=== PATIENT | female | born 1955 | race Caucasian/White ===

== ENCOUNTER 2016-11-19 05:24 | Emergency (ER) | payer OTHER, MEDICAID ==
[~2016-11-19] VITALS: Ht 165.1 cm; Wt 64.0 kg
[2016-11-19] MEDS ORDERED: IV SET PRIMARY PUMP SET 1 EA INFUS.SET MC ONE (05:40)
[2016-11-19] MEDS ORDERED: IV NS 0.9% 1,000 ML ONE (05:40)
[2016-11-19] MEDS ORDERED: PANTOPRAZOLE 40 MG VIAL ONE (05:40)
[2016-11-19] MEDS ORDERED: IV NS 0.9% 100 ML IV ONE (05:40)
[2016-11-19] MEDS ORDERED: ONDANSETRON HCL/PF 4 MG/2 ML VIAL ONE (05:40)
[2016-11-19] MEDS ORDERED: SECONDARY IV SET 1 EA INFUS.SET MC ONE (05:40)
--- NOTE | 2016-11-19 05:51 | NUR ---
BIB RA FROM HOME FOR ETOH, PATIENT IS VERBALLY RESPONSIVE WITH SLOW SPEECH AND FORGETFULNESS, PATIENT IS PLACED ON MONITOR, NO SOB, NO CHEST PAIN, MD AT BEDSIDE UPON ARRIVAL, WILL CONTINUE TO MONITOR CLOSELY.
[2016-11-19] MEDS ORDERED: IV NS 0.9% 1,000 ML BAG IV ONE (06:00)
[2016-11-19] MEDS ORDERED: PANTOPRAZOLE 40 MG VIAL IV ONE (06:00)
[2016-11-19] MEDS ORDERED: ONDANSETRON HCL/PF 4 MG/2 ML VIAL IVP ONE (06:00)
[2016-11-19] MEDS ORDERED: HYDROMORPHONE 1 MG/1 ML DISP.SYRIN ONE ×2 (06:53→08:48)
[2016-11-19] MEDS ORDERED: HYDROMORPHONE 1 MG/1 ML DISP.SYRIN IV ONE ×2 (07:00→09:00)
--- NOTE | 2016-11-19 07:01 | NUR ---
Clinton ortega in [facility] - 11/19/16 at 0704 by MARLYS MATI TERRY PLACED BY NURSING ASSISTANT PROFESSOR OF NURSING TARAH
--- NOTE | 2016-11-19 07:04 | NUR ---
MEDICATED PT ORDERED
--- NOTE | 2016-11-19 08:00 | NUR ---
PT STILL REFUSES BLOOD DRAW. MADE AWARE.
--- NOTE | 2016-11-19 08:10 | NUR ---
DR. ZUÑIGA AT BS TO TALK TO PT.
--- NOTE | 2016-11-19 08:19 | NUR ---
MIXING MACHINE TENDER CORK ROD AT FOR BLOOD DRAW.
[2016-11-19 08:41] LABS: BASOPHILS # (AUTO) 0.1 /CMM (0.0-0.2); BASOPHILS % (AUTO) 1.5 % (0.0-2.0); EOSINOPHILS # (AUTO) 0.5 /CMM (0.0-0.7); EOSINOPHILS % (AUTO) 5.8 % (0.0-6.0); HEMATOCRIT 33 % (33-45); HEMOGLOBIN 10.6 g/dL (11.5-14.8); LYMPHOCYTES # (AUTO) 2.8 /CMM (0.8-4.8); LYMPHOCYTES % (AUTO) 34.2 % (20.0-44.0); MEAN CORPUSCULAR HEMOGLOBIN 27 PG (26.0-33.0); MEAN CORPUSCULAR HGB CONC 33 g/dl (31.0-36.0); MEAN CORPUSCULAR VOLUME 82 fL (82-100); MONOCYTES # (AUTO) 0.4 /CMM (0.1-1.30); MONOCYTES % (AUTO) 4.5 % (2.0-12.0); NEUTROPHILS # (AUTO) 4.4 /CMM (1.8-8.9); PLATELET COUNT (AUTO) 264 /CMM (150-450); RDW COEFFICIENT OF VARIATION 18.6 (11.5-15.0); RED BLOOD CELL COUNT(AUTO) 4.02 MIL/uL (4.0-5.2); WHITE BLOOD COUNT (AUTO) 8.2 K/uL (4.3-11.0)
--- NOTE | 2016-11-19 08:45 | NUR ---
[facility] CALLED FOR VS UPDATE.
[2016-11-19 08:51] LABS: CALCIUM, SERUM 8.4 mg/dL (8.5-10.1); CARBON DIOXIDE 22 mmol/L (21-32); CHLORIDE 101 mmol/L (98-107); CREATININE 0.6 mg/dL (0.6-1.3); GLUCOSE 79 mg/dL (74-106); POTASSIUM 4.2 mmol/L (3.5-5.1); SODIUM SERUM 134 mmol/L (136-145); UREA NITROGEN, BLOOD 9 mg/dL (7-18)
[2016-11-19 08:57] LABS: ALANINE AMINOTRANSFERASE 35 U/L (12-78); ALBUMIN 3.5 g/dL (3.4-5.0); ALKALINE PHOSPHATASE 122 U/L (46-116); ASPARTATE AMINOTRANSFERASE 48 U/L (15-37); BILIRUBIN,DIRECT 0.1 mg/dL (0.0-0.2); BILIRUBIN,TOTAL 0.2 mg/dL (0.2-1.0); SALICYLATE 5.5 mg/dL (2.8-20.0); TOTAL PROTEIN, SERUM 7.5 g/dL (6.4-8.2)
[2016-11-19 08:58] LABS: ACETAMINOPHEN 0 ug/ml (10-30); ALCOHOL, BLOOD < 3 mg/dL (0-0)
[2016-11-19 08:59] LABS: TROPONIN I < 0.017 ng/mL (0.00-0.056)
[2016-11-19 09:02] LABS: APPEARANCE,URINE CLEAR (CLEAR); BILIRUBIN,URINE NEGATIVE (NEGATIVE); BLOOD, URINE NEGATIVE Ery/uL (NEGATIVE); COLOR,URINE YELLOW (YELLOW); KETONES,URINE NEGATIVE (NEGATIVE); LEUKOCYTE ESTERASE ,URINE NEGATIVE (NEGATIVE); NITRITE, URINE NEGATIVE (NEGATIVE); PROTEIN,URINE NEGATIVE (NEGATIVE); UGLUCOSE NEGATIVE (NEGATIVE); UROBILINOGEN,URINE 0.2 EU/dL (0.2)
[2016-11-19 09:05] LABS: MAGNESIUM 1.9 mg/dL (1.8-2.4)
[2016-11-19 09:29] VITALS: BP 126/81
--- NOTE | 2016-11-19 09:29 | NUR ---
Patient discharged to home in stable condition. Written and verbal after care instructions given. Patient verbalizes understanding of instruction.
== END 2016-11-19 09:31 | disposition home or self-care (01) ==
LOC: ER 05:26
DX: R10.13 Epigastric pain (principal); F10.129 Alcohol abuse with intoxication, unspecified; R94.6 Abnormal results of thyroid function studies
CPT/HCPCS: 36415; 80048-TC; 80076-TC; 81000-TC; 82140-TC; 83690-TC; 83735-TC; 84443-TC; 84484-TC; 85025-TC; A4606; C9113; G0480; J1170; J2405; J7030; Z7610

== ENCOUNTER 2016-11-23 13:37 | Emergency (ER) | payer OTHER, MEDICAID ==
[~2016-11-23] VITALS: Ht 170.2 cm; Wt 56.7 kg
--- NOTE | 2016-11-23 13:37 | NUR ---
BIB RA 39 FROM HOME,ROOMMATE CALLED 911 FOR HER FOR "BINGING ON ALCOHOL" C/O EPIGASTRIC PAIN. PT USUALLY DOESNT DRINK ALCOHOL . PLACED ON MONITOR. AWAITING MD ORDER.
--- NOTE | 2016-11-23 15:36 | NUR ---
SCALLOP BINDER AT BEDSIDE
[2016-11-23] MEDS ORDERED: HYDROCODONE/APAP 5/325MG 1 EACH TABLET ONE (16:55)
[2016-11-23] MEDS ORDERED: HYDROCODONE/APAP 5/325MG 1 EACH TABLET PO ONE (17:00)
[2016-11-23 17:05] VITALS: BP 122/76
--- NOTE | 2016-11-23 17:06 | NUR ---
Patient discharged to home in stable condition. Written and verbal after care instructions given. Patient verbalizes understanding of instruction.
== END 2016-11-23 17:29 | disposition home or self-care (01) ==
LOC: ER 13:39
DX: F10.129 Alcohol abuse with intoxication, unspecified (principal); S62.501A Fracture of unspecified phalanx of right thumb, initial encounter for closed fracture; C14.0 Malignant neoplasm of pharynx, unspecified; W01.0XXA Fall on same level from slipping, tripping and stumbling without subsequent striking against object, initial encounter; Y93.89 Activity, other specified; Y92.89 Other specified places as the place of occurrence of the external cause; Y99.8 Other external cause status
CPT/HCPCS: 29125; 73100; 73140; 99284; A4606; Z7610

== ENCOUNTER 2020-12-24 05:32 | Inpatient (IN) | payer MEDICAID, OTHER ==
[~2020-12-24] VITALS: Ht 165.1 cm; Wt 49.9 kg
--- NOTE | 2020-12-24 05:50 | NUR ---
PATIENT [id number], FROM STREET, C/O CHEST PAIN AFTER DRINKING ETOH AND GETTING KICKED OUT OF SOBER LIVING. PATIENT IS A/O, RR EVEN AND UNLABORED, NO SIGNS OF SOB NOTED. PATIENT CONNECTED TO HOME HEALTH CAREGIVER AND POX.
[2020-12-24 06:25] LABS: BASOPHILS # (AUTO) 0.1 K/uL (0.0-0.2); EOSINOPHILS % (AUTO) 2.2 % (0.0-6.0); HEMATOCRIT 37 % (33-45); HEMOGLOBIN 12.4 g/dL (11.5-14.8); LYMPHOCYTES # (AUTO) 1.7 K/uL (0.8-4.8); LYMPHOCYTES % (AUTO) 32.6 % (20.0-44.0); MEAN CORPUSCULAR HGB CONC 33 g/dl (31.0-36.0); MEAN CORPUSCULAR VOLUME 97 fL (82-100); MONOCYTES # (AUTO) 0.5 K/uL (0.1-1.30); MONOCYTES % (AUTO) 9.6 % (2.0-12.0); NEUTROPHILS # (AUTO) 2.9 K/uL (1.8-8.9); NEUTROPHILS % (AUTO) 54.6 % (43.0-81.0); PLATELET COUNT (AUTO) 262 K/uL (150-450); RED BLOOD CELL COUNT(AUTO) 3.83 MIL/uL (4.0-5.2); WHITE BLOOD COUNT (AUTO) 5.4 K/uL (4.3-11.0)
[2020-12-24 06:40] LABS: POTASSIUM 3.3 mmol/L (3.5-5.1)
[2020-12-24 06:46] LABS: ALBUMIN 3.8 g/dL (3.4-5.0); BILIRUBIN,DIRECT 0.2 mg/dL (0.0-0.2); BILIRUBIN,TOTAL 0.4 mg/dL (0.2-1.0); TOTAL PROTEIN, SERUM 7.5 g/dL (6.4-8.2)
[2020-12-24 06:53] LABS: CALCIUM, SERUM 8.9 mg/dL (8.5-10.1)
[2020-12-24 07:15] LABS: CREATININE 0.7 mg/dL (0.6-1.3)
--- NOTE | 2020-12-24 07:19 | NUR ---
nghia Ross speaking with md estrada
[2020-12-24] MEDS ORDERED: LORAZEPAM 1 MG TABLET PO ONE (07:30)
[2020-12-24] MEDS ORDERED: ASPIRIN 81 MG TAB.CHEW PO ONE (07:30)
[2020-12-24] MEDS ORDERED: LORAZEPAM 1 MG TABLET ONE ×2 (07:43→15:27)
[2020-12-24] MEDS ORDERED: ASPIRIN 81 MG TAB.CHEW ONE (07:44)
--- NOTE | 2020-12-24 07:46 | NUR ---
ASSESSED PT ON BED AWAKE AND ALERT, NOT IN RESPIRATORY DISTRESS, V/S STABLE, KEPT RESTED AND COMFORTABLE. WILL CONTINUE TO MONITOR.
--- NOTE | 2020-12-24 08:14 | NUR ---
CALLED [facility].
--- NOTE | 2020-12-24 08:39 | NUR ---
[facility]PROV[facility] TO STAY FOR ADMISSION.
--- NOTE | 2020-12-24 08:58 | NUR ---
PAGED EPIC WEIGHT TRAINING INSTRUCTOR
--- NOTE | 2020-12-24 09:02 | NUR ---
SUBMITTED MOVE PACKET
--- NOTE | 2020-12-24 09:27 | NUR ---
PAGED EPIC STEAM BONE PRESS TENDER. ER CONSULTING ADMITTING MD
[2020-12-24] MEDS ORDERED: FAMO20TA8 PO (09:41)
[2020-12-24] MEDS ORDERED: QUET25TA PO (09:41)
[2020-12-24] MEDS ORDERED: GABA-532 PO (09:41)
[2020-12-24] MEDS ORDERED: ALBU8.5H8 IH (09:41)
[2020-12-24] MEDS ORDERED: CARV3.122 PO (09:41)
[2020-12-24] MEDS ORDERED: HYDROCODONE/APAP 5/325MG TABLET PO PRN (13:00)
[2020-12-24] MEDS ORDERED: ALBUTEROL FS 2.5 MG/3 ML VIAL.NEB NEB PRN (13:00)
[2020-12-24] MEDS ORDERED: MAG HYDROX/AL HYDROX/SIMETH 30 ML UDC PO PRN (13:00)
[2020-12-24] MEDS ORDERED: NITROGLYCERIN 0.4 MG/TAB BOTTLE SL PRN (13:00)
[2020-12-24] MEDS ORDERED: ALBUTEROL SULFATE INH 18 GM HFA.AER.AD IH PRN (13:00)
[2020-12-24] MEDS ORDERED: MORPHINE SULFATE INJ 2 MG/ML DISP.SYRIN IV PRN (13:00)
[2020-12-24] MEDS ORDERED: MAGNESIUM HYDROXIDE 30 ML UDC PO PRN (13:00)
[2020-12-24] MEDS ORDERED: IV NS 0.9% 1,000 ML IV PRN (13:00)
[2020-12-24] MEDS ORDERED: ACETAMINOPHEN 325 MG TABLET PO PRN (13:00)
[2020-12-24] MEDS ORDERED: ONDANSETRON HCL/PF 4 MG/2 ML VIAL IVP PRN (13:00)
[2020-12-24] MEDS ORDERED: Z GUARD REMEDY 2 OZ OINT TP PRN (13:00)
[2020-12-24] MEDS: LORAZEPAM 1 MG TABLET PO PRN (15:30)
--- NOTE | 2020-12-24 16:55 | NUR ---
ASSIGNED [id number]
--- NOTE | 2020-12-24 17:07 | NUR ---
REPORT GIVEN TO ALFA TRAN FOR JASON
--- NOTE | 2020-12-24 17:15 | NUR ---
PT TRANSPORTED TO UNIT ON [facility] WITH EMT AND RN AT BEDSIDE WITH ACLS PROTOCOL. NAD NOTED DURING TRANSPORT.
[2020-12-24] MEDS: QUETIAPINE FUMARATE 25 MG TABLET PO SCH (17:39)
[2020-12-24] MEDS: CARVEDILOL 3.125 MG TABLET PO SCH (17:39)
[2020-12-24] MEDS: GABAPENTIN 100 MG CAPSULE PO SCH (17:39)
[2020-12-24] MEDS: FAMOTIDINE (20 MG) 20 MG TABLET PO SCH (17:40)
--- NOTE | 2020-12-24 17:46 | NUR ---
SCALPER OPERATOR NOTE RECEIVED PATIENT VIA GURNEY ON TELE MONITOR SHOWING NSR, PATIENT AMBULATED STEADILY TO THE BED. PATIENT IS A/O X4. PATIENT IS BREATHING EVENLY AND NONLABORED ON ROOM AIR. NO SIGNS OF DISTRESS NOTED. VITALS BP 11/78, HR 87, SPO 95% RR 17 TEMP 97.8. BELONGINGS ACCOUNTED FOR. PATIENT HAS IV ACCESS R WRIST # 22 GAUGE PATENT AND INTACT. PATIENT DOES NOT COMPLAIN OF PAIN AT THIS TIME. SKIN INTACT WARM CLEAN AND DRY. PATIENT WAS ORIENTED TO THE ROOM AND HOW TO USE THE CALL LIGHT. SAFETY MEASURES IN PLACE BED LOW LOCKED CALL LIGHT WITHIN REACH. WILL CONTINUE TO MONITOR
--- NOTE | 2020-12-24 19:40 | NUR ---
TELE/RN OPENING NOTE RECEIVED PATIENT SLEEPING IN BED. ALERT AND ORIENTED X 4. ABLE TO MAKE NEEDS KNOWN. DENIES PAIN AT THIS TIME. CONTINUES ON ROOM AIR WITH NO S/SX OF RESPIRATORY DISTRESS NOTED. IV ACCESS TO RIGHT WRIST #22G INTACT AND PATENT. CONTINUES ON IV NS @ 75ML/HR. CALL LIGHT WITHIN REACH. ASPIRATION, FALL AND SAFETY PRECAUTIONS MAINTAINED. WILL CONTINUE TO MONITOR.
[2020-12-24 20:12] VITALS: BP 111/78
--- NOTE | 2020-12-24 21:34 | NUR ---
TELE/RN NOTE PATIENT TO HAVE CTCA TOMORROW AM AND UNABLE TO OBTAIN PROPER IV ACCESS D/T DIFFICULT STICK. NEW ORDER FROM COMMUNITY RELATIONS REP MONOMER RECOVERY OPERATOR MENESES FOR MIDLINE PLACEMENT. PATIENT AWARE AND AGREEABLE.
[2020-12-25] VITALS (9 sets, daily range): BP systolic 89–105; BP diastolic 50–75
--- NOTE | 2020-12-25 04:36 | NUR ---
TELE/RN NOTE PATIENTS BP LOW USING VITALS TOWER. BP RECHECK WITH MANUAL CUFF: 100/60. PATIENT DENIES DIZZINESS, SOB, OR CHANGE IN MENTAL STATUS. CONTINUES ON IVF 0.9% NS @ 75ML/HR. WILL CONTINUE TO MONITOR.
[2020-12-25 06:36] LABS: BASOPHILS # (AUTO) 0.1 K/uL (0.0-0.2); BASOPHILS % (AUTO) 1.4 % (0.0-2.0); EOSINOPHILS % (AUTO) 3.7 % (0.0-6.0); HEMATOCRIT 35 % (33-45); HEMOGLOBIN 11.8 g/dL (11.5-14.8); LYMPHOCYTES % (AUTO) 43.1 % (20.0-44.0); MEAN CORPUSCULAR HGB CONC 33 g/dl (31.0-36.0); MEAN CORPUSCULAR VOLUME 98 fL (82-100); MONOCYTES # (AUTO) 0.4 K/uL (0.1-1.30); MONOCYTES % (AUTO) 7.9 % (2.0-12.0); NEUTROPHILS % (AUTO) 43.9 % (43.0-81.0); PLATELET COUNT (AUTO) 270 K/uL (150-450); RED BLOOD CELL COUNT(AUTO) 3.62 MIL/uL (4.0-5.2); WHITE BLOOD COUNT (AUTO) 4.6 K/uL (4.3-11.0)
--- NOTE | 2020-12-25 06:40 | NUR ---
TELE/RN CLOSING NOTE PATIENT CURRENTLY SLEEPING IN BED. ALERT AND ORIENTED X 4. ABLE TO MAKE NEEDS KNOWN. DENIES PAIN AT THIS TIME. CONTINUES ON ROOM AIR WITH NO S/SX OF RESPIRATORY DISTRESS NOTED. IV ACCESS TO LEFT UPPER ARM MIDLINE #18G INTACT AND PATENT. CONTINUES ON IV NS @ 75ML/HR. CALL LIGHT WITHIN REACH. ASPIRATION, FALL AND SAFETY PRECAUTIONS MAINTAINED. WILL ENDORSE PLAN OF CARE TO ONCOMING SHIFT.
--- NOTE | 2020-12-25 07:09 | NUR ---
DOG WALKER OPENING NOTE NOTE RECEIVED PATIENT RESTING IN BED. PATIENT IS A/O X4. PATIENT IS BREATHING EVENLY AND NONLABORED ON ROOM AIR. NO SIGNS OF DISTRESS NOTED. PATIENT HAS IV ACCESS LEFT UPPER ARM MIDLINE #18 GAUGE PATENT AND INTACT RUNNING NS @ 75 ML/HR. PATIENT DOES NOT COMPLAIN OF PAIN AT THIS TIME. SKIN INTACT WARM CLEAN AND DRY. PATIENT IS NPO FOR CTCA SAFETY MEASURES IN PLACE BED LOW LOCKED CALL LIGHT WITHIN REACH. WILL CONTINUE TO MONITOR
[2020-12-25] MEDS: PANTOPRAZOLE 40 MG TABLET.DR PO SCH (07:30)
[2020-12-25 08:00] LABS: CALCIUM, SERUM 8.3 mg/dL (8.5-10.1); CREATININE 0.8 mg/dL (0.6-1.3); MAGNESIUM 2.1 mg/dL (1.8-2.4); PHOSPHORUS 3.7 mg/dL (2.5-4.9); POTASSIUM 4.1 mmol/L (3.5-5.1)
[2020-12-25 08:23] LABS: THYROID STIMULATING HORMONE 0.7 uIU/mL (0.358-3.74)
[2020-12-25] MEDS: CARVEDILOL 3.125 MG TABLET PO SCH (08:54)
[2020-12-25] MEDS: ASPIRIN EC 81 MG TABLET.DR PO SCH (08:54)
--- NOTE | 2020-12-25 08:54 | NUR ---
RN NOTE PATIENT IS NPO FOR CTCA PROCEDURE, OKAY TO HOLD MORNING MEDICATIONS, VITALS STABLE. WILL CONTINUE TO MONITOR
[2020-12-25] MEDS: QUETIAPINE FUMARATE 25 MG TABLET PO SCH ×2 (08:55→17:27)
[2020-12-25] MEDS: FAMOTIDINE (20 MG) 20 MG TABLET PO SCH ×2 (08:55→17:27)
[2020-12-25] MEDS: GABAPENTIN 100 MG CAPSULE PO SCH ×2 (08:55→17:27)
[2020-12-25] MEDS ORDERED: CT SWABBABLE VALVE TRANS SET 1 EA INFUS.SET MC ONE (09:01)
[2020-12-25] MEDS ORDERED: IOHEXOL-350 100 ML VIAL IV ONE (09:01)
[2020-12-25] MEDS ORDERED: IV NS 0.9% 250 ML IV ONE (09:01)
--- NOTE | 2020-12-25 09:05 | NUR ---
started IV NS 500ml Bolus 18g midline ROSALBA @0905 prior to CTA c/t BP low 100/71. endtime 0950
[2020-12-25] MEDS ORDERED: IV NS 0.9% 500 ML IV ONE (09:17)
[2020-12-25] MEDS ORDERED: NITROGLYCERIN 0.4 MG/TAB BOTTLE SL ONE (09:30)
[2020-12-25] MEDS ORDERED: METOPROLOL TARTRATE INJ 5 MG/5 ML AMPUL IVP PRN (09:30)
[2020-12-25] MEDS ORDERED: METOPROLOL TARTRATE INJ 5 MG/5 ML AMPUL ONE (09:49)
--- NOTE | 2020-12-25 10:05 | NUR ---
Report given to ALFA Sadler for JASON.
[2020-12-25] MEDS: LORAZEPAM 1 MG TABLET PO PRN ×2 (10:16→18:03)
[2020-12-25] MEDS: DILTIAZEM HCL CD 240 MG PO SCH (10:16)
[2020-12-25] MEDS ORDERED: ASPI-1420 PO (13:36)
[2020-12-25] MEDS ORDERED: DILT240C88 PO (13:36)
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
--- NOTE | 2020-12-25 14:40 | NUR ---
Brigadier note: Patient requested voluntary psychiatric admission for suicidal ideation. SW faxed clinicals [facility][phone] and [facility]-[phone], for review.
--- NOTE | 2020-12-25 16:45 | NUR ---
RN NOTE PATIENT VERBALIZED SUICIDAL IDEATION WITH ACTIVE PLAN. CHARGE NURSE MADE AWARE. PSYCHIATRIST WILL COME TO EVALUATE. SAFETY MEASURES IN PLACE. WILL MONITOR PATIENT'S BEHAVIOR.
--- NOTE | 2020-12-25 17:23 | NUR ---
RN NOTE PATIENT IS BEING PLACED ON FORMAL HOLD FOR SUICIDAL IDEATION. CHARGE NURSE AWARE. WILL CONTINUE TO MONITOR PATIENTS STATUS.
--- NOTE | 2020-12-25 18:02 | NUR ---
RN NOTE PATIENT COMPLAINED OF FEELING ANXIOUS. ASKED FOR PRN ANTIANXIETY MEDICATION. WILL GIVE MEDICATION ORDERED.
--- NOTE | 2020-12-25 18:39 | NUR ---
CLAY DRY PRESS HELPER CLOSING NOTE PATIENT RESTING IN BED. PATIENT IS A/O X4. PATIENT IS BREATHING EVENLY AND NONLABORED ON ROOM AIR. NO SIGNS OF DISTRESS NOTED. PATIENT HAS IV ACCESS LEFT UPPER ARM MIDLINE #18 GAUGE PATENT AND INTACT. PATIENT DOES NOT COMPLAIN OF PAIN AT THIS TIME. SKIN INTACT WARM CLEAN AND DRY. PATIENT VERBALIZED SUICIDAL IDEATION. PATIENT WAS PLACED ON A FORMAL HOLD, BUT HAS DISCHARGE ORDER DUE TO MEDICALLY STABLE. AWAITING SAFE PLACEMENT AT THIS TIME. PATIENT HAS 1:[address] SAFETY MEASURES IN PLACE BED LOW LOCKED CALL LIGHT WITHIN REACH. WILL ENDORSE TO ONCOMING SHIFT.
--- NOTE | 2020-12-25 19:20 | NUR ---
TELE/RN OPENING NOTE RECEIVED PATIENT SLEEPING IN BED. ALERT AND ORIENTED X 4. ABLE TO MAKE NEEDS KNOWN. DENIES PAIN AT THIS TIME. CONTINUES ON ROOM AIR WITH NO S/SX OF RESPIRATORY DISTRESS NOTED. IV ACCESS TO LEFT UPPER ARM MIDLINE #18G INTACT, PATENT AND SALINE LOCKED. ENDORSES SUICIDAL IDEATION. 1:[address] PATIENT CURRENTLY ON 5150 HOLD AND AWAITING SAFE PLACEMENT. CALL LIGHT WITHIN REACH. ASPIRATION, FALL AND SAFETY PRECAUTIONS MAINTAINED. WILL CONTINUE TO MONITOR.
[2020-12-26] MEDS: LORAZEPAM 1 MG TABLET PO PRN ×2 (05:39→20:28)
--- NOTE | 2020-12-26 06:30 | NUR ---
TELE/RN CLOSING NOTE PATIENT CURRENTLY SLEEPING IN BED. ALERT AND ORIENTED X 4. ABLE TO MAKE NEEDS KNOWN. DENIES PAIN AT THIS TIME. CONTINUES ON ROOM AIR WITH NO S/SX OF RESPIRATORY DISTRESS NOTED. IV ACCESS TO LEFT UPPER ARM MIDLINE #18G INTACT, PATENT AND SALINE LOCKED. CONTINUES WITH 1:1 SITTER. PATIENT CURRENTLY ON 5150 HOLD AND AWAITING SAFE PLACEMENT. CALL LIGHT WITHIN REACH. ASPIRATION, FALL AND SAFETY PRECAUTIONS MAINTAINED. WILL ENDORSE PLAN OF CARE TO ONCOMING SHIFT.
--- NOTE | 2020-12-26 07:04 | NUR ---
MS RN OPENING NOTES RECEIVE PT AWAKE IN BED AT THIS TIME. AOX4. NO SOB NOTED, NO S/O OF ANY ACUTE DISTRESS NOTED, NO C/O PAIN AT THIS TIME. RESPIRATIONS EVEN AND UNLABORED. ABLE TO MAKE NEEDS KNOWN. NOTED ON EXTERNAL TELE REMOTELY PILOTED VEHICLE CONTROLLER READING SR 67. ROSALBA MIDLINE, INTACT, PATENT AND FLUSHING WELL. SAFETY PRECAUTIONS IN PLACE AND MAINTAINED AT ALL TIMES. BED IN LOWEST LOCKED POSITION, HOB ELEVATED, SIDE RAILS UP X2, CALL LIGHT AND TABLE WITHIN REACH. WILL CONTINUE TO MONITOR
[2020-12-26 08:00] VITALS: BP 100/66
[2020-12-26] MEDS: FAMOTIDINE (20 MG) 20 MG TABLET PO SCH ×2 (08:17→16:36)
[2020-12-26] MEDS: QUETIAPINE FUMARATE 25 MG TABLET PO SCH ×2 (08:17→16:36)
[2020-12-26] MEDS: GABAPENTIN 100 MG CAPSULE PO SCH ×2 (08:17→16:36)
[2020-12-26] MEDS: PANTOPRAZOLE 40 MG TABLET.DR PO SCH (08:18)
[2020-12-26] MEDS: ASPIRIN EC 81 MG TABLET.DR PO SCH (08:18)
[2020-12-26] MEDS: DILTIAZEM HCL CD 240 MG PO SCH (08:18)
--- NOTE | 2020-12-26 08:20 | NUR ---
PT STATED " I DONT WANT TO LIVE AND I PLAN ON TAKING PILLS ". PT WITH 1:1 SITTER AT BEDSIDE FOR OBSERVATION. PT DENIES HI. SAFETY FOR SI IN PLACE. WILL CONTINUE WITH PLAN OF CARE
[2020-12-26 16:39] VITALS: BP 91/64
--- NOTE | 2020-12-26 18:19 | NUR ---
FELICIANO FROM [facility] CALLED TO GET REPORT ON PATIENT TO DETERMINE ACCEPTANCE TO [facility]. AWAITING FOLLOW-UP CALL. WILL CONTINUE WITH PLAN OF CARE
--- NOTE | 2020-12-26 19:05 | NUR ---
ANN, RN FROM [facility] CALLED AND INFORM NURSE THAT PATIENT IS BEING ACCEPTED TO UNIT 3, REPORT #: [id number], ACCEPTING PHYSICIAN IS DR PEREIRA AND INTERNAL COMBUSTION ENGINEER AT 20:30PM RICHA 12/26/20. DISCONTINUE IV PRIOR TO DISCHARGE.ENDORSED TO CARPET JOURNEYMAN NURSE FOR JASON
--- NOTE | 2020-12-26 19:24 | NUR ---
RN CLOSING NOTES RECEIVED PT AWAKE IN BED, PT REMAINED STABLE THROUGHOUT SHIFT. ALL PATIENT CARE, NEEDS AND MEDICATIONS ADMINISTERED ANTICIPATED PER ORDER. KEPT CLEAN AND DRY. SAFETY PRECAUTIONS IN PLACE AND MAINTAINED AT ALL TIMES. BED IN LOWEST LOCKED POSITION, HOB ELEVATED, SIDE RAILS UP X2, CALL LIGHT AND TABLE WITHIN REACH. WILL ENDORSE TO FIREWORKS ASSEMBLY SUPERVISOR NURSE FOR JASON
--- NOTE | 2020-12-26 20:01 | NUR ---
MS RN Opening Notes Patient was last seen sleeping in bed. Patient is alert and oriented x4. Patient's on room air with no respiratory distress needed. Patient has a left upper arm midline gauge #18, which is intact, patent, and flushing well. Patient's in no acute distress at this time. Safety measures in place: Bed locked, side rails up x2, and call light within reach of the patient. Will continue to monitor the patient.
--- NOTE | 2020-12-26 21:07 | NUR ---
MS match marker Notes Patient was discharged from the unit at approximately 2103 accompanied by EMT Best. Report on the patient was given to EMT Best. Discharge folder including the patient's 5150 hold was given to the EMT to go to the facility where the patient is being transferred to. Patient is alert and oriented x4. Patient's on room air with no respiratory distress needed. Patient's left upper arm midline was removed prior discharge. Patient was in no acute distress at the time of discharge.
[2020-12-27] MEDS ORDERED: Fluoxetine 10 mg capsule PO SCH (09:00)
== END 2020-12-26 21:05 | DRG 282 ==
LOC: ER 05:33 → TRANSITION 10:44 → TELE 17:01 → MED 12-26 09:49
PROC: 05H633Z Insertion of Infusion Device into Left Subclavian Vein, Percutaneous Approach (ICD-10-PCS; principal; 2020-12-24)
PROC: B547ZZA Ultrasonography of Left Subclavian Vein, Guidance (ICD-10-PCS; 2020-12-24)
DX: I21.4 Non-ST elevation (NSTEMI) myocardial infarction (principal); B19.20 Unspecified viral hepatitis C without hepatic coma; Z20.822 Contact with and (suspected) exposure to COVID-19; K27.9 Peptic ulcer, site unspecified, unspecified as acute or chronic, without hemorrhage or perforation; F17.210 Nicotine dependence, cigarettes, uncomplicated; F32.9 Major depressive disorder, single episode, unspecified; I10 Essential (primary) hypertension; I25.10 Atherosclerotic heart disease of native coronary artery without angina pectoris; I25.2 Old myocardial infarction; I35.0 Nonrheumatic aortic (valve) stenosis; F39 Unspecified mood [affective] disorder; F29 Unspecified psychosis not due to a substance or known physiological condition; Z72.89 Other problems related to lifestyle; K74.60 Unspecified cirrhosis of liver; F15.90 Other stimulant use, unspecified, uncomplicated; Z85.819 Personal history of malignant neoplasm of unspecified site of lip, oral cavity, and pharynx
CPT/HCPCS: 36415; 71045-TC; 75574; 80048-TC; 80061-TC; 80076-TC; 83735-TC; 83880; 84100-TC; 84443-TC; 84484-TC; 85025-TC; 87081-TC; 93307-TC; C1751; C9803; G0378; G0480; J3490; J7030; J7040; J7050; Q9967

== ENCOUNTER 2021-03-07 03:18 | Emergency (ER) | payer OTHER ==
[~2021-03-07] VITALS: Ht 165.1 cm; Wt 45.4 kg
[~2021-03-07 03:18] MED LIST: ALBU8.5H8 IH; ASPI-1420 PO; DILT240C88 PO; FAMO20TA8 PO; GABA-532 PO; QUET25TA PO
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
[2021-03-07] MEDS ORDERED: LORAZEPAM INJ 2 MG/ML VIAL ONE (03:51)
--- NOTE | 2021-03-07 03:56 | NUR ---
XRAY AT BEDSIDE
[2021-03-07] MEDS ORDERED: LORAZEPAM INJ 2 MG/ML VIAL IM ONE ×2 (04:00→04:30)
[2021-03-07] MEDS ORDERED: TRAM-351 PO (05:05)
[2021-03-07] MEDS ORDERED: IBUP-1957 PO (05:05)
[2021-03-07 07:48] VITALS: BP 126/74
--- NOTE | 2021-03-07 07:48 | NUR ---
Patient discharged to home in stable condition. Written and verbal after care instructions given. Patient verbalizes understanding of instruction.
== END 2021-03-07 07:49 | disposition home or self-care (01) ==
LOC: ER 03:21
DX: S62.326A Displaced fracture of shaft of fifth metacarpal bone, right hand, initial encounter for closed fracture (principal); S62.501G Fracture of unspecified phalanx of right thumb, subsequent encounter for fracture with delayed healing; I25.2 Old myocardial infarction; Z91.048 Other nonmedicinal substance allergy status; Z88.1 Allergy status to other antibiotic agents; Z88.8 Allergy status to other drugs, medicaments and biological substances; Z79.899 Other long term (current) drug therapy; Y08.89XA Assault by other specified means, initial encounter; Y93.89 Activity, other specified; Y92.89 Other specified places as the place of occurrence of the external cause; Y99.8 Other external cause status
CPT/HCPCS: 29125; 73110; 73130; 96372; 99291; J2060